=== PATIENT | male | born 1960 | race Caucasian/White ===

== ENCOUNTER → 2020-12-07 | Outpatient (CLI) | payer MEDICARE | END | disposition home or self-care (01) | LOC: CVU 08:52 | PROVIDERS: ATTEND Registered Nurse | DX: I37.1 Nonrheumatic pulmonary valve insufficiency (principal); J45.40 Moderate persistent asthma, uncomplicated; N20.0 Calculus of kidney; Z87.820 Personal history of traumatic brain injury | CPT/HCPCS: 71250; 93306 ==